=== PATIENT | female | born 1975 | race Caucasian/White ===

== ENCOUNTER 2023-04-06 23:15 | Inpatient (IN) | payer MEDICAID ==
[~2023-04-06] VITALS: Ht 152.4 cm; Wt 82.5 kg
[2023-04-06] MEDS ORDERED: iohexol 350MG/ML 100ml bottle IV ONE (23:55)
[2023-04-07] MEDS: piperacillin/tazo 3.375gm/50ml 50 ML IV ONE (00:48)
[2023-04-07 01:05] LABS: CREATINE KINASE 75 U/L (26-192)
[2023-04-07] MEDS ORDERED: magnesium Cl slow-release 64mg tablet PO PRN (02:00)
[2023-04-07] MEDS ORDERED: mag hydrox/Alum hydrox/simeth 30ml oral suspension PO PRN (02:00)
[2023-04-07] MEDS ORDERED: morphine 2 MG/ML inj. syringe IV PRN (02:00)
[2023-04-07] MEDS ORDERED: magnesium 4gm in 100ml NS 100 ML IV PRN (02:00)
[2023-04-07] MEDS ORDERED: potassium Cl 40MEQ/1/2NS 520ml 520 ML IV PRN (02:00)
[2023-04-07] MEDS ORDERED: HYDROcodone/acetaminophen 5mg/325mg tablet PO PRN (02:00)
[2023-04-07] MEDS ORDERED: diphenhydrAMINE 25mg capsule PO PRN (02:00)
[2023-04-07] MEDS ORDERED: magnesium 2GM in 50ml NS 50 ML IV PRN (02:00)
[2023-04-07] MEDS ORDERED: potassium Cl 20 mEq SR tablet PO PRN ×2 (02:00)
[2023-04-07] MEDS ORDERED: acetaminophen 325mg tablet PO PRN (02:00)
[2023-04-07] MEDS ORDERED: ondansetron/PF 4mg/2ml inj IV PRN (02:00)
[2023-04-07] MEDS: normal saline 1000ml 1,000 ML IV SCH (02:25)
[2023-04-07 03:21] LABS: MAGNESIUM 1.9 MG/DL (1.5-2.4); POTASSIUM 3.4 MMOL/L (3.5-5.1)
[2023-04-07] MEDS: VANCOMYCIN 1,500MG in normal saline IV soln 300 ML IV ONE (03:29)
[2023-04-07] MEDS: metoprolol tartrate 1mg/ml inj IV ONE (05:33)
[2023-04-07] MEDS: K and/or MAG REPLACEMENT MC SCH (08:00)
[2023-04-07 08:31] LABS: BASOPHILS % (AUTO) 0.2 % (0-1); EOSINOPHILS # (AUTO) 0.2 X10'3 (0-0.9); EOSINOPHILS % (AUTO) 1.4 % (0-6); HEMATOCRIT 44.6 % (35.0-45.0); HEMOGLOBIN 15.2 g/dl (12.0-16.0); LYMPHOCYTES # (AUTO) 3.6 X10'3 (1.1-4.8); LYMPHOCYTES % (AUTO) 29.4 % (21-51); MEAN CORPUSCULAR HEMOGLOBIN 31.4 PG (27.0-31.0); MEAN CORPUSCULAR HGB CONC 34.1 g/dL (33.0-36.5); MEAN CORPUSCULAR VOLUME 91.9 FL (78-98); MEAN PLATELET VOLUME 7.2 FL (7.4-10.4); MONOCYTES # (AUTO) 0.7 X10'3 (0-0.9); NEUTROPHILS # (AUTO) 7.7 X10'3 (1.8-7.7); PLATELET COUNT 274 X10'3 (140-440); RED BLOOD COUNT 4.85 X10'6 (4.20-5.60); RED CELL DISTRIBUTION WIDTH 14.1 % (11.5-14.5); WHITE BLOOD COUNT 12.3 X10'3 (4.5-11.0)
[2023-04-07] MEDS ORDERED: LORazepam 1 MG tablet PO PRN (08:40)
[2023-04-07] MEDS ORDERED: LORazepam 2 mg/ml vial IV PRN (08:40)
[2023-04-07 09:05] LABS: ALANINE AMINOTRANSFERASE 38 U/L (12-78); ALBUMIN 2.7 G/DL (3.4-5.0); ALBUMIN/GLOBULIN RATIO 0.7 (1.1-1.5); ALKALINE PHOSPHATASE 103 IU/L (46-116); ANION GAP 6 (8-16); ASPARTATE AMINO TRANSFERASE 18 U/L (10-37); BILIRUBIN,TOTAL 0.6 MG/DL (0.1-1.0); BLOOD UREA NITROGEN 12 MG/DL (7-18); BUN/CREATININE RATIO 10.8 (10.0-20.0); CHLORIDE 103 MMOL/L (99-107); CREATININE 1.11 MG/DL (0.40-0.90); GLUCOSE 127 MG/DL (70-104); POTASSIUM 4.9 MMOL/L (3.5-5.1); SODIUM 137 MMOL/L (135-145); TOTAL CARBON DIOXIDE 28.5 MMOL/L (24-32); TOTAL PROTEIN 6.5 G/DL (6.4-8.2); eCRCL 45 ML/MIN; eGFR 53 ML/MIN
[2023-04-07] MEDS: lisinopril 20mg tablet PO SCH (09:45)
[2023-04-07] MEDS: piperacillin/tazo 3.375gm/50ml 50 ML IV SCH (09:45)
[2023-04-07] MEDS: PERFLUTREN PROTEIN-A MICROSPHR (Optison) 0.22 MG/ML 3ML VIAL IV ONE (09:46)
[2023-04-07 10:04] LABS: HEMOGLOBIN A1C 5.8 % (4.5-6.2)
[2023-04-07 10:10] LABS: CHOL/HDL RATIO 3.6 (0.00-4.99); CHOLESTEROL 158 MG/DL (0-200); HDL CHOLESTEROL 44 MG/DL (35-60); LDL CHOLESTEROL 93 MG/DL (50-100); THYROID STIMULATING HORMONE 1.88 ulU/ml (0.34-4.50); TRIGLYCERIDES 103 MG/DL (20-135)
[2023-04-07] MEDS: tetanus & diphtheria toxoid (Td) vaccine 0.5ml IMVAC ONE (14:13)
[2023-04-07] MEDS: vancomycin/NS 1 GM ADD-VANTAGE 250 ML IV SCH (15:08)
[2023-04-07] MEDS ORDERED: temazepam 15mg capsule PO PRN (21:00)
[2023-04-07 21:55] VITALS: BP 127/96; PULSE 90; RESP 16; RESP 18; TEMP 98.3; O2SAT 97
[2023-04-08] VITALS (7 sets, daily range): BP systolic 142–189; BP diastolic 95–124; PULSE 86–101; RESP 16–18; TEMP 97.1–97.7; O2SAT 97–100
[2023-04-08 07:11] LABS: BASOPHILS % (AUTO) 0.3 % (0-1); EOSINOPHILS # (AUTO) 0.2 X10'3 (0-0.9); EOSINOPHILS % (AUTO) 2.2 % (0-6); HEMATOCRIT 44.5 % (35.0-45.0); HEMOGLOBIN 15.2 g/dl (12.0-16.0); LYMPHOCYTES # (AUTO) 3.5 X10'3 (1.1-4.8); LYMPHOCYTES % (AUTO) 33.6 % (21-51); MEAN CORPUSCULAR HEMOGLOBIN 31.5 PG (27.0-31.0); MEAN CORPUSCULAR HGB CONC 34.1 g/dL (33.0-36.5); MEAN CORPUSCULAR VOLUME 92.3 FL (78-98); MEAN PLATELET VOLUME 7.6 FL (7.4-10.4); MONOCYTES # (AUTO) 0.7 X10'3 (0-0.9); MONOCYTES % (AUTO) 6.6 % (2-12); NEUTROPHILS % (AUTO) 57.3 % (42-75); PLATELET COUNT 252 X10'3 (140-440); RED BLOOD COUNT 4.82 X10'6 (4.20-5.60); RED CELL DISTRIBUTION WIDTH 13.9 % (11.5-14.5); WHITE BLOOD COUNT 10.4 X10'3 (4.5-11.0)
[2023-04-08 07:21] LABS: ALBUMIN 2.6 G/DL (3.4-5.0); ANION GAP 8 (8-16); BLOOD UREA NITROGEN 17 MG/DL (7-18); BUN/CREATININE RATIO 14.4 (10.0-20.0); CALCIUM 8.5 MG/DL (8.5-10.1); CHLORIDE 103 MMOL/L (99-107); CREATININE 1.18 MG/DL (0.40-0.90); GLUCOSE 104 MG/DL (70-104); MAGNESIUM 1.9 MG/DL (1.5-2.4); POTASSIUM 4.3 MMOL/L (3.5-5.1); SODIUM 139 MMOL/L (135-145); TOTAL CARBON DIOXIDE 28.1 MMOL/L (24-32); eCRCL 42 ML/MIN; eGFR 49 ML/MIN
[2023-04-08] MEDS ORDERED: pneumococcal 23-VAL P-sac vacc 25 mcg/0.5ml vial IMVAC ONE (10:00)
[2023-04-08] MEDS: LORazepam 0.5 MG tablet PO PRN (14:47)
[2023-04-08] MEDS: VANCOMYCIN LEVEL IV ONE (14:50)
[2023-04-08 15:14] LABS: VANCOMYCIN,TROUGH 3.4 ug/mL (10.0-20.0)
[2023-04-08] MEDS ORDERED: tetanus & diphtheria toxoid (Td) vaccine 0.5ml IMVAC ONE (20:00)
[2023-04-08] MEDS: carVEDilol 12.5mg tablet PO SCH (20:49)
[2023-04-09] MEDS: vancomycin/NS 1 GM ADD-VANTAGE 250 ML IV SCH (00:15)
[2023-04-09 00:42] LABS: BILIRUBIN,URINE NEGATIVE (Neg); CLARITY,URINE CLEAR (Clear); COLOR,URINE YELLOW (Yellow); GLUCOSE, URINE NEGATIVE (Neg); KETONES,URINE NEGATIVE (Neg); LEUKOCYTE ESTERASE ,URINE SMALL (Neg); NITRITES, URINE NEGATIVE (Neg); OCCULT BLOOD,URINE TRACE-INTACT (Neg); PROTEIN,URINE NEGATIVE (Neg); UROBILINOGEN,URINE 0.2 E.U/dL (0.2-1.0)
[2023-04-09 00:47] LABS: UA COLLECTION TYPE VOIDED
[2023-04-09 00:52] LABS: SQUAMOUS EPITHELIAL CELL,UR MANY /LPF (FEW)
[2023-04-09 00:54] LABS: BACTERIA,URINE FEW /HPF (Neg); RBC,URINE 0-2 /HPF (0-2)
[2023-04-09 01:28] LABS: UA EOSINOPHILS NO EOS /HPF
[2023-04-09 01:30] LABS: TOTAL PROTEIN,URINE RANDOM 16.2 MG/DL
[2023-04-09 06:00] VITALS: BP 138/96; PULSE 85; RESP 16; TEMP 97.4; O2SAT 97
[2023-04-09 06:45] LABS: BASOPHILS % (AUTO) 0.2 % (0-1); EOSINOPHILS # (AUTO) 0.3 X10'3 (0-0.9); EOSINOPHILS % (AUTO) 2.4 % (0-6); HEMATOCRIT 44.1 % (35.0-45.0); HEMOGLOBIN 15.2 g/dl (12.0-16.0); LYMPHOCYTES # (AUTO) 3.8 X10'3 (1.1-4.8); LYMPHOCYTES % (AUTO) 33.3 % (21-51); MEAN CORPUSCULAR HEMOGLOBIN 31.7 PG (27.0-31.0); MEAN CORPUSCULAR HGB CONC 34.4 g/dL (33.0-36.5); MEAN CORPUSCULAR VOLUME 92.1 FL (78-98); MEAN PLATELET VOLUME 7.6 FL (7.4-10.4); MONOCYTES # (AUTO) 0.7 X10'3 (0-0.9); MONOCYTES % (AUTO) 5.8 % (2-12); NEUTROPHILS # (AUTO) 6.6 X10'3 (1.8-7.7); NEUTROPHILS % (AUTO) 58.3 % (42-75); PLATELET COUNT 263 X10'3 (140-440); RED BLOOD COUNT 4.78 X10'6 (4.20-5.60); RED CELL DISTRIBUTION WIDTH 13.9 % (11.5-14.5); WHITE BLOOD COUNT 11.3 X10'3 (4.5-11.0)
[2023-04-09 06:56] LABS: ALBUMIN 2.6 G/DL (3.4-5.0); ANION GAP 9 (8-16); BLOOD UREA NITROGEN 16 MG/DL (7-18); BUN/CREATININE RATIO 15.7 (10.0-20.0); CALCIUM 8.2 MG/DL (8.5-10.1); CHLORIDE 103 MMOL/L (99-107); CREATININE 1.02 MG/DL (0.40-0.90); GLUCOSE 110 MG/DL (70-104); MAGNESIUM 1.8 MG/DL (1.5-2.4); POTASSIUM 4.1 MMOL/L (3.5-5.1); SODIUM 137 MMOL/L (135-145); TOTAL CARBON DIOXIDE 25.1 MMOL/L (24-32); eCRCL 49 ML/MIN; eGFR 58 ML/MIN
[2023-04-09 10:40] VITALS: RESP 18
[2023-04-09] MEDS: spironolactone 25 MG tablet PO SCH (10:55)
[2023-04-09 11:00] VITALS: BP 152/106; PULSE 81; RESP 18; TEMP 97.6; O2SAT 96
[2023-04-09 18:00] VITALS: BP 183/103; PULSE 75; RESP 20; TEMP 97.5; O2SAT 99
[2023-04-09 22:00] VITALS: BP 149/103; PULSE 86; RESP 16; TEMP 98.3; O2SAT 99
[2023-04-09] MEDS: VANCOMYCIN LEVEL IV SCH (23:30)
[2023-04-10 06:00] VITALS: BP 146/100; PULSE 85; RESP 14; TEMP 97.6; O2SAT 92
[2023-04-10 06:14] LABS: BASOPHILS % (AUTO) 0.4 % (0-1); EOSINOPHILS # (AUTO) 0.3 X10'3 (0-0.9); EOSINOPHILS % (AUTO) 2.4 % (0-6); HEMATOCRIT 44.7 % (35.0-45.0); HEMOGLOBIN 15.3 g/dl (12.0-16.0); LYMPHOCYTES # (AUTO) 3.5 X10'3 (1.1-4.8); LYMPHOCYTES % (AUTO) 29.9 % (21-51); MEAN CORPUSCULAR HEMOGLOBIN 31.4 PG (27.0-31.0); MEAN CORPUSCULAR HGB CONC 34.1 g/dL (33.0-36.5); MEAN CORPUSCULAR VOLUME 92.1 FL (78-98); MEAN PLATELET VOLUME 7.7 FL (7.4-10.4); MONOCYTES # (AUTO) 0.7 X10'3 (0-0.9); MONOCYTES % (AUTO) 5.9 % (2-12); NEUTROPHILS # (AUTO) 7.2 X10'3 (1.8-7.7); NEUTROPHILS % (AUTO) 61.4 % (42-75); PLATELET COUNT 257 X10'3 (140-440); RED BLOOD COUNT 4.86 X10'6 (4.20-5.60); RED CELL DISTRIBUTION WIDTH 13.8 % (11.5-14.5); WHITE BLOOD COUNT 11.7 X10'3 (4.5-11.0)
[2023-04-10 06:25] LABS: ALBUMIN 2.6 G/DL (3.4-5.0); ANION GAP 10 (8-16); BLOOD UREA NITROGEN 14 MG/DL (7-18); BUN/CREATININE RATIO 14.7 (10.0-20.0); CALCIUM 8.6 MG/DL (8.5-10.1); CHLORIDE 106 MMOL/L (99-107); CREATININE 0.95 MG/DL (0.40-0.90); GLUCOSE 113 MG/DL (70-104); MAGNESIUM 1.9 MG/DL (1.5-2.4); POTASSIUM 4.4 MMOL/L (3.5-5.1); SODIUM 137 MMOL/L (135-145); TOTAL CARBON DIOXIDE 21.5 MMOL/L (24-32); eCRCL 53 ML/MIN; eGFR 63 ML/MIN
[2023-04-10 08:25] VITALS: RESP 18
[2023-04-10] MEDS: VANCOMYCIN 750MG IV in NS 250 ML IV SCH (08:26)
[2023-04-10 10:00] VITALS: BP 155/88; PULSE 76; RESP 18; TEMP 98; O2SAT 98
[2023-04-10] MEDS ORDERED: DOXY100C2 PO (14:21)
[2023-04-11] MEDS ORDERED: VANCOMYCIN LEVEL IV ONE (07:30)
== END 2023-04-10 16:05 | disposition home or self-care (01) | DRG 383 ==
LOC: ER 23:16 → ED HOLD 04-07 02:01 → ORTHO 4S 04-07 21:42
PROVIDERS: ADMIT Internal Medicine; ATTEND Family Medicine
PROC: B42H1ZZ Computerized Tomography (CT Scan) of Bilateral Lower Extremity Arteries using Low Osmolar Contrast (ICD-10-PCS; principal; 2023-04-06)
DX: L03.116 Cellulitis of left lower limb (principal); N17.9 Acute kidney failure, unspecified; I13.0 Hypertensive heart and chronic kidney disease with heart failure and stage 1 through stage 4 chronic kidney disease, or unspecified chronic kidney disease; I42.7 Cardiomyopathy due to drug and external agent; I50.20 Unspecified systolic (congestive) heart failure; F43.10 Post-traumatic stress disorder, unspecified; F15.10 Other stimulant abuse, uncomplicated; E87.6 Hypokalemia; L97.929 Non-pressure chronic ulcer of unspecified part of left lower leg with unspecified severity; I83.92 Asymptomatic varicose veins of left lower extremity; G47.33 Obstructive sleep apnea (adult) (pediatric); N18.9 Chronic kidney disease, unspecified; I73.9 Peripheral vascular disease, unspecified; Z87.891 Personal history of nicotine dependence; Z88.6 Allergy status to analgesic agent; Z79.899 Other long term (current) drug therapy; Z82.49 Family history of ischemic heart disease and other diseases of the circulatory system
CPT/HCPCS: 36415; 71045; 73620; 73706; 76770; 80048; 80053; 80061; 80202; 81001; 82550; 82570; 83036; 83605; 83735; 83880; 83935; 84132; 84133; 84145; 84156; 84300; 84443; 85025; 87040; 87081; 87207; 90715; 93005; 93306; 93971; 99285; G0378; J2543; J3370; J3490; J7030; J7040; Q9967